=== PATIENT | male | born 1980 | race Caucasian/White ===

== ENCOUNTER 2017-03-03 11:34 | Emergency (ER) | payer SELFPAY ==
[~2017-03-03] VITALS: Ht 167.6 cm; Wt 83.9 kg
[2017-03-03 12:06] VITALS: BP 136/82
[2017-03-03] MEDS ORDERED: AMOX500C PO (12:40)
[2017-03-03] MEDS ORDERED: NAPR500T8 PO (12:40)
[2017-03-03] MEDS ORDERED: ACET-704 PO (12:40)
--- NOTE | 2017-03-03 12:41 | PHYS DOC ---
Past Medical History Past Medical History: No Pertinent History Past Surgical History: Other Additional Past Surgical Histo: UMBILICAL HERNIA REPAIR Alcohol Use: None Drug Use: None Adult General Chief Complaint Chief Complaint: DENTAL PROBLEM HPI HPI Patient is a 37 year old male with no significant medical history who presents today complaining of moderate left lower jaw dental pain for one day. Patient denies any fever or trismus. Review of Systems Review of Systems Constitutional: Denies fever or chills [] Eyes: Denies change in visual acuity, redness, or eye pain [] HENT: moderate left lower jaw dental pain Musculoskeletal: Denies back pain or joint pain [] Integument: Denies rash or skin lesions [] Neurologic: Denies headache, focal weakness or sensory changes [] Allergies Allergies Allergies Coded Allergies Type Severity Reaction Last Updated Verified gabapentin Allergy Intermediate "DIZZINESS" 03/03/17 Yes tramadol Allergy Intermediate "SEIZURE" 03/03/17 Yes Physical Exam Physical Exam Constitutional: Well developed, well nourished, no acute distress, non-toxic appearance. [] HENT: Normocephalic, atraumatic, bilateral external ears normal, oropharynx moist, no oral exudates, nose normal. [] Patient has severe infected dental caries throughout his teeth. There is a small dental abscess noted on the left lower gum, no fluctuance to the area. Gum erythema on the left lower gum Skin: Warm, dry, no erythema, no rash. [] Back: No tenderness, no CVA tenderness. [] Extremities: No tenderness, no cyanosis, no clubbing, ROM intact, no edema. [] Neurologic: Alert and oriented X 3, normal motor function, normal sensory function, no focal deficits noted. [] Psychologic: Affect normal, judgement normal, mood normal. [] Current Patient Data Vital Signs Vital Signs Date Time Temp Pulse Resp B/P (MAP) Pulse Ox O2 Delivery O2 Flow Rate FiO2 03/03/17 12:06 98.6 68 16 97 Room Air 98.6 EKG EKG [] Radiology/Procedures Radiology/Procedures [] Course & Med Decision Making Course & Med Decision Making Pertinent Labs and Imaging studies reviewed. (See chart for details) Patient has infected dental caries as well as dental abscess. Will be discharged with Tylenol 3 and amoxicillin. Follow-up with dentist in 1-2 weeks. Dragon Disclaimer Dragon Disclaimer This electronic medical record was generated, in whole or in part, using a voice recognition dictation system. Departure Departure Impression: Primary Impression: Dentalgia Additional Impressions: Dental abscess Infected dental caries Disposition: 01 HOME, SELF-CARE Condition: STABLE Referrals: NO PCP (PCP) follow up with your dentist as soon as you can Patient Instructions: Dental Abscess, Dental Caries, Dental Pain Additional Instructions: You were seen for dental abscess and infection. Ensure you complete your antibiotics. Follow-up with your dentist as soon as possible. Scripts Naproxen (NAPROXEN) 500 Mg Tablet.dr 1 TAB PO BID, #30 TAB 0 Refills Prov: NITESH QUACH APRN 03/03/17 Amoxicillin (AMOXICILLIN) 500 Mg Capsule 500 MG PO TID, #30 CAP 0 Refills Prov: NITESH QUACH APRN 03/03/17 Acetaminophen With Codeine (TYLENOL WITH CODEINE #3 TABLET) 1 Each Tablet 1 TAB PO PRN Q6HRS Y for PAIN, #20 TAB DO NOT FILL THIS RX IF HE HAS FILLED ANY NARCOTICS IN THE LAST SEVEN DAYS. CAN NOT FILL IT PAST 03/03/2017 MUST FILL AMOXICILLIN PRIOR TO PAIN MEDICINE Prov: NITESH QUACH APRN 03/03/17 Problem Qualifiers NITESH QUACH APRN Mar 03, 2017 12:41
== END 2017-03-03 12:49 | disposition home or self-care (01) ==
LOC: ER 11:34
DX: K04.7 Periapical abscess without sinus (principal); K02.9 Dental caries, unspecified; Z88.5 Allergy status to narcotic agent; Z88.8 Allergy status to other drugs, medicaments and biological substances
CPT/HCPCS: 99283